=== PATIENT | female | born 1950 | race Caucasian/White ===

== ENCOUNTER 2017-11-13 21:22 | Emergency (ER) | payer MEDICARE ==
[2017-11-13] MEDS: MORPHINE SULFATE 4 MG/ML INJ IM (22:14)
== END 2017-11-14 07:21 | disposition home or self-care (01) ==
LOC: NEPE 21:22 → NEPB 11-14 07:21
DX: M25.552 Pain in left hip (principal); Z98.890 Other specified postprocedural states
CPT/HCPCS: 96372; 99284-25